=== PATIENT | female | born 1980 | race Caucasian/White ===

== ENCOUNTER 2022-06-28 15:00 | Inpatient (IN) ==
[2022-06-28] MEDS ORDERED: *HR* LORazepam 2 MG/ML VIAL IVP STA (16:23)
[2022-06-28 16:33] LABS: Basophils # 0.1 K/mcL (0.0-0.2); Basophils % 0.8 %; Eosinophils # 0.2 K/mcL (0.0-0.6); Hematocrit 38.7 % (35.3-44.9); Immature Granulocytes % 0.4 % (0-4); Lymphocytes % 40.6 %; Mean Corpuscular HGB Conc 33.6 g/dL (31.6-35.5); Mean Corpuscular Hemoglobin 30.1 pg (28.0-33.3); Mean Corpuscular Volume 89.6 fL (83.0-100.0); Mean Platelet Volume 10.9 fL (9.4-12.4); Monocytes # 0.6 K/mcL (0.0-1.3); Monocytes % 7.4 %; Neutrophils # 3.6 K/mcL (1.6-8.9); Platelet Count 237 K/mcL (140-400); Red Blood Count 4.32 M/mcL (3.82-4.97); Red Cell Distribution Width 12.5 % (11.5-14.5); Segmented Neutrophils % 48.8 %; White Blood Count 7.4 K/mcL (4.3-11.1)
[2022-06-28 16:48] LABS: Alanine Aminotransferase 12 Units/L (7-52); Albumin 3.6 g/dL (3.5-5.7); Albumin/Globulin Ratio 1.6 (1.1-2.2); Alkaline Phosphatase 70 Units/L (34-104); Aspartate Amino Transferase 10 Units/L (13-39); BUN/Creatinine Ratio 15 (6-26); Bilirubin,Indirect 0.2 mg/dL (0.0-1.0); Bilirubin,Total 0.2 mg/dL (0.3-1.0); Blood Urea Nitrogen 11 mg/dL (6-20); Calcium 8.2 mg/dL (8.6-10.3); Carbon Dioxide 22 mEq/L (23-29); Chloride 113 mEq/L (98-107); Ethanol < 10 mg/dL (Less than 10); Globulin 2.3 g/dL (2.4-3.5); Glucose 86 mg/dL (70-105); Osmolality,Calculated 289 (280-300); Potassium 3.7 mEq/L (3.5-5.1); Sodium 140 mEq/L (136-145); Total Protein 5.9 g/dL (6.4-8.9); Troponin I < 0.03 ng/mL (< 0.04)
[2022-06-28] MEDS ORDERED: Naloxone 0.4 MG/ML INJ IVP PRN (17:53)
[2022-06-28] MEDS ORDERED: levETIRAcetam 1,000 MG in 0.9 % Sodium Chloride 100 ML IVPB ONE (18:00)
[2022-06-28 18:23] LABS: Amphetamine Screen,Urine Negative ng/mL (Cutoff=1000); Bacteria,Urine Few per hpf (None-Few); Barbiturate Screen,Urine Negative ng/mL (Cutoff=200); Benzodiazepines Screen,Urine Negative ng/mL (Cutoff=200); Bilirubin,Urine Negative (Negative); Blood,Urine Negative (Negative); Cannabinoid Screen,Urine Negative ng/mL (Cutoff = 50); Clarity,Urine Turbid (Clear); Cocaine Screen,Urine Negative ng/mL (Cutoff= 300); Color,Urine Yellow (Yellow); Glucose,Urine (UA) Normal (Normal); Ketones,Urine Negative (Negative); Leukocyte Esterase,Urine Negative (Negative); Mucus,Urine Many per lpf (None-Few); Nitrite,Urine Negative (Negative); Opiate Screen,Urine Negative ng/mL (Cutoff=300); Phencyclidine Screen,Urine Negative ng/mL (Cutoff=25); Protein,Urine Trace mg/dL (Neg-Trace); RBC,Urine 0-3 per hpf (0-3); Specific Gravity,Urine 1.026 (1.010-1.025); Squamous Epithelial Cell,Urine Moderate per hpf (None-Few); Urobilinogen,Urine Normal (Normal)
[2022-06-28] MEDS: *HR* Heparin 5,000 UNIT/ML VIAL SQ SCH (20:57)
[2022-06-28] MEDS ORDERED: Calcium Gluconate 1gm/50mL 1 GM/50 ML BAG IVPB ONE (21:54)
[2022-06-29 03:30] LABS: Basophils % 0.5 %; Eosinophils # 0.2 K/mcL (0.0-0.6); Eosinophils % 1.8 %; Hematocrit 39.4 % (35.3-44.9); Hemoglobin 12.7 g/dL (11.5-15.4); Immature Granulocytes % 0.4 % (0-4); Lymphocytes # 3.7 K/mcL (0.6-4.6); Lymphocytes % 45.3 %; Mean Corpuscular HGB Conc 32.2 g/dL (31.6-35.5); Mean Corpuscular Hemoglobin 29.1 pg (28.0-33.3); Mean Corpuscular Volume 90.2 fL (83.0-100.0); Mean Platelet Volume 10.9 fL (9.4-12.4); Monocytes # 0.6 K/mcL (0.0-1.3); Monocytes % 6.9 %; Neutrophils # 3.7 K/mcL (1.6-8.9); Platelet Count 232 K/mcL (140-400); Red Blood Count 4.37 M/mcL (3.82-4.97); Red Cell Distribution Width 12.4 % (11.5-14.5); Segmented Neutrophils % 45.1 %; White Blood Count 8.3 K/mcL (4.3-11.1)
[2022-06-29 03:43] LABS: BUN/Creatinine Ratio 13 (6-26); Blood Urea Nitrogen 10 mg/dL (6-20); Calcium 8.6 mg/dL (8.6-10.3); Carbon Dioxide 21 mEq/L (23-29); Chloride 112 mEq/L (98-107); Glucose 97 mg/dL (70-105); Magnesium 1.9 mg/dL (1.6-2.6); Osmolality,Calculated 287 (280-300); Potassium 3.7 mEq/L (3.5-5.1); Sodium 139 mEq/L (136-145)
[2022-06-29] MEDS: *HR* Heparin 5,000 UNIT/ML VIAL SQ SCH ×2 (06:57→17:21)
[2022-06-29] MEDS: TROKENDI 50 MG PO SCH ×2 (09:15→20:46)
[2022-06-29] MEDS: TROKENDI 100 MG PO SCH ×2 (09:15→20:46)
[2022-06-29] MEDS: clonazePAM 0.5 MG TABLET PO SCH (12:41)
[2022-06-29] MEDS: Linaclotide [Linzess] 290 MCG Capsule PO SCH (13:08)
[2022-06-29 13:45] LABS: Influenza A PCR Negative (Negative); Influenza B PCR Negative (Negative); Resp. Syncytial Virus PCR Negative (Negative)
[2022-06-29 13:53] LABS: SARS-CoV-2 by PCR (In House) Negative (Negative)
[2022-06-29 15:17] LABS: Thyroid Stimulating Hormone 1.823 mcIU/mL (0.340-5.600)
[2022-06-29] MEDS: lamoTRIgine 100 MG TABLET PO SCH (17:21)
[2022-06-29] MEDS: Acetaminophen 325 MG TABLET PO PRN (23:47)
[2022-06-30] MEDS: *HR* Heparin 5,000 UNIT/ML VIAL SQ SCH ×2 (06:33→17:12)
[2022-06-30] MEDS: clonazePAM 0.5 MG TABLET PO SCH (07:57)
[2022-06-30] MEDS: Linaclotide [Linzess] 290 MCG Capsule PO SCH (07:58)
[2022-06-30] MEDS: Acetaminophen 325 MG TABLET PO PRN ×2 (12:10→20:27)
[2022-06-30] MEDS ORDERED: 0.9 % Sodium Chloride 500 ML IVC ONE (14:32)
[2022-06-30] MEDS: lamoTRIgine 100 MG TABLET PO SCH (17:10)
[2022-06-30] MEDS: Ondansetron 4 MG/2 ML VIAL IVP PRN (19:13)
[2022-06-30] MEDS: *HR* LORazepam 2 MG/ML VIAL IVP PRN (20:24)
[2022-06-30] MEDS: TROKENDI 100 MG PO SCH (20:27)
[2022-06-30] MEDS: TROKENDI 50 MG PO SCH (20:27)
[2022-07-01] MEDS: *HR* Heparin 5,000 UNIT/ML VIAL SQ SCH (05:38)
[2022-07-01] MEDS ORDERED: Gadolinium Contrast Agent (WT Based) IV PRN (07:21)
[2022-07-01] MEDS: clonazePAM 0.5 MG TABLET PO SCH (08:00)
[2022-07-01] MEDS: Linaclotide [Linzess] 290 MCG Capsule PO SCH (08:02)
[2022-07-01 08:18] LABS: Basophils % 0.6 %; Eosinophils # 0.1 K/mcL (0.0-0.6); Eosinophils % 1.9 %; Hematocrit 41.3 % (35.3-44.9); Hemoglobin 13.5 g/dL (11.5-15.4); Immature Granulocytes % 0.3 % (0-4); Lymphocytes # 2.9 K/mcL (0.6-4.6); Lymphocytes % 42.3 %; Mean Corpuscular HGB Conc 32.7 g/dL (31.6-35.5); Mean Corpuscular Hemoglobin 29.5 pg (28.0-33.3); Mean Corpuscular Volume 90.4 fL (83.0-100.0); Mean Platelet Volume 10.5 fL (9.4-12.4); Monocytes # 0.5 K/mcL (0.0-1.3); Monocytes % 7.5 %; Neutrophils # 3.3 K/mcL (1.6-8.9); Platelet Count 243 K/mcL (140-400); Red Blood Count 4.57 M/mcL (3.82-4.97); Red Cell Distribution Width 12.5 % (11.5-14.5); Segmented Neutrophils % 47.4 %; White Blood Count 6.9 K/mcL (4.3-11.1)
[2022-07-01 08:28] LABS: Blood Urea Nitrogen 13 mg/dL (6-20); Carbon Dioxide 22 mEq/L (23-29); Chloride 111 mEq/L (98-107); Potassium 4.1 mEq/L (3.5-5.1); Sodium 138 mEq/L (136-145)
[2022-07-01 10:41] VITALS: TEMP 97.7
[2022-07-01] MEDS ORDERED: *HR* LORazepam 1 MG TABLET PO ONE (10:48)
[2022-07-01] MEDS: Ondansetron 4 MG/2 ML VIAL IVP PRN (10:58)
[2022-07-01 14:02] LABS: Red Blood Cell,CSF < 2000 RBC/mcL
[2022-07-01 14:03] LABS: Appearance,CSF Clear (Clear)
[2022-07-01 14:07] LABS: Glucose,CSF 60 mg/dL (40-70); Total Protein,CSF 51 mg/dL (15-45)
[2022-07-01] MEDS: *HR* LORazepam 2 MG/ML VIAL IVP PRN (15:56)
[2022-07-01 15:58] VITALS: PULSE 74; O2SAT 98
[2022-07-01 15:59] VITALS: BP 93/60
[2022-07-01] MEDS: Acetaminophen 325 MG TABLET PO PRN (16:01)
[2022-07-01] MEDS ORDERED: diazePAM 10 MG/2 ML SYRINGE IVP STA (16:09)
== END 2022-07-01 16:31 | disposition short-term general hospital (02) | DRG 53 ==
LOC: 3BNU 15:00 → EMEROOARM 15:00 → SUATTDRO 19:00 → 3BNU 19:32 → SUATTDRO 06-29 19:33 → 3BNU 06-29 20:59
PROVIDERS: ADMIT Internal Medicine; ATTEND Registered Nurse